=== PATIENT | female | born 1970 | race Asian ===

== ENCOUNTER 2018-11-22 11:21 | Emergency (ER) | payer BC ==
[~2018-11-22] VITALS: Ht 160 cm; Wt 59.9 kg
--- NOTE | 2018-11-22 11:33 | NUR ---
PT BIBSELF FOR L SHOULDER PAIN; PT AAOX4, PT ON MONITOR, VSS, NAD NOTED, PENDING MD MONTERO
[2018-11-22] MEDS ORDERED: KETOROLAC TROMETHAMINE INJ 30 MG/ML VIAL ONE (12:26)
[2018-11-22] MEDS: KETOROLAC TROMETHAMINE INJ 60 MG/2 ML VIAL IM ONE (12:32)
--- NOTE | 2018-11-22 13:40 | NUR ---
Patient discharged to home in stable condition. Written and verbal after care instructions given. Patient verbalizes understanding of instruction.
[2018-11-22 13:44] VITALS: BP 133/74
== END 2018-11-22 13:45 | disposition home or self-care (01) ==
LOC: ER 11:24
DX: M25.512 Pain in left shoulder (principal)
CPT/HCPCS: 73030; 84703; 96372; 99284; J1885